=== PATIENT | female | born 1970 | race Caucasian/White ===

== ENCOUNTER 2017-01-16 00:15 | Emergency (ER) | payer OTHER ==
[2017-01-16] MEDS ORDERED: FAMOTIDINE 20 MG TABLET ONE (01:26)
[2017-01-16] MEDS ORDERED: DIPHENHYDRAMINE 25 MG CAPSULE PO ONE (01:26)
--- NOTE | 2017-01-16 01:26 | ER NURSING DOCUMENTATION ---
Nurse's Notes [facility] Name:Rochelle Marcial Age:46 yrs Sex:Female :1970 Arrival Date:01/16/2017 Time:00:15 Bed5 Private MD:Margarita Mcelroy Diagnosis:Insect Bite on Head;Allergic Reaction Presentation: 01/16 00:20 Presenting complaint: Patient states: Left eye pain and edema. States possible bug mk4 bite. Transition of care: Home. 00:20 Method Of Arrival: Walk In [facility] 00:20 Acuity: BAO 4 [facility] 00:25 Presenting complaint:. 4 Triage Assessment: 00:20 Bite description: bite sustained to left eye by a spider. General: Appears comfortable, 4 Behavior is cooperative. Pain: Complains of pain in left eye. EENT: No deficits noted. Neuro: No deficits noted. Cardiovascular: Chest pain is denied. Respiratory: Airway is patent Breath sounds are clear bilaterally. GI: No deficits noted. : No deficits noted. Derm: No deficits noted. 01:25 Bite description: bite by animal information: vaccination(s). [facility] Historical: - Allergies: PENICILLINS; - Home Meds: 1. None - Tetanus: < 10 years. - Ebola Screening: : No symptoms or risks identified at this time. . - Immunization history: Unable to Obtain. - Social history: Smoking status: Patient states was never smoker of tobacco. Screenin:20 Infectious Disease Risk None. Abuse screen: Denies threats or abuse. Nutritional [facility] screening: No deficits noted. Assessment: 00:20 See Triage Assessment done by same RN. [facility] 00:20 Derm: Skin is pink, warm & dry. 4 00:20 Derm: Skin is intact. [facility] Vital Signs: 00:23 BP 111 / 51 (auto/); mk4 00:23 Pulse Ox 98% ; mk4 00:23 Temp 98.7; Weight 52.16 kg; Height 5 ft. 3 in. (160.02 cm); Pain 2/10; mk4 00:23 Body Mass Index 20.37 (52.16 kg, 160.02 cm) [facility] ED Course: 00:16 Patient arrived in ED. em2 00:16 Margarita Mcelroy MD is Private Physician. em2 00:[address] Carter notified. Allergy Band Placed Arm band placed on Bed in mk4 low position Call Light in Reach. Family accompanied patient. 00:25 Marycruz Shukla is Primary Nurse. mk4 00:52 Joao Carter MD is Attending Physician. cd 01:06 Margarita Mcelroy MD is Referral Physician. cd 01:17 Triage completed. mk4 01:23 Valuables Remains with patient. mk4 Administered Medications: 01:14 Drug: Benadryl 50 mg; Route: PO; mk4 01:21 Follow up: Response: No adverse reaction mk4 01:14 Drug: Pepcid 20 mg; Route: PO; mk4 01:21 Follow up: Response: No adverse reaction 4 Outcome: 01:07 Discharge ordered by . cd 01:24 Discharged to home mk4 01:24 Condition: good 01:24 Discharge instructions given to patient, Instructed on discharge instructions, follow up and referral plans. medication usage, Demonstrated understanding of Prescriptions given X 1. 01:25 Patient left the ED. 4 Signatures: Jaoo Carter MD MD Shanell-reg, Roselyn-reg em2 Marycruz Shukla [facility]
--- NOTE | 2017-01-16 01:26 | ER PHYSICIAN DOCUMENTATION ---
Physician Documentation [facility] Name:Rochelle Marcial Age:46 yrs Sex:Female :1970 Arrival Date:01/16/2017 Time:00:15 Bed5 Private MD:Margarita Mcelroy ED, Chris Disposition: 01/16/17 01:07 Discharged to Home/Self Care. Impression: Insect Bite on Head, Allergic Reaction. - Condition is Good. - Discharge Instructions: ALLERGIC REACTION, Insect (Local). - Prescriptions for Pepcid 20 mg Oral Tablet - take 1 tablet by ORAL route every 12 hours for 5 days; 10 tablet. - Medical Reconciliation form form. - Follow up: Margarita Mcelroy MD; When: 4- 6 days; Reason: Recheck today's complaints, Continuance of care. - Problem is new. - Symptoms have improved. - Notes: Apply ice packs to left eye. Take Benadryl 25mg by mouth every 6 hours for 2 days. Take Pepcid 20mg by mouth every 12 hours for 5 days. HPI: 01/16 00:30 This 46 yrs old Female presents to ER via Walk In with complaints of Insect cd Bite - LEFT EYE. 00:30 The patient is experiencing upper lid swelling after probable insect bite, to the left cd eye. Onset: The symptom(s)/episode began/occurred acutely, today. Associated signs and symptoms: Pertinent negatives: chills, ear ache, fever, headache. Severity of symptoms: At their worst the symptoms were mild in the emergency department the symptoms are unchanged. Historical: - Allergies: PENICILLINS; - Home Meds: 1. None - Tetanus: < 10 years. - Ebola Screening: : No symptoms or risks identified at this time. . - Immunization history: Unable to Obtain. - Social history: Smoking status: Patient states was never smoker of tobacco. ROS: 00:30 Constitutional: Negative for fever, chills, rigors and weight loss. cd 00:30 ENT: Negative for injury, pain, epistaxis and discharge. cd 00:30 Eyes: Positive for itching, swelling, Negative for foreign body sensation, pain, redness. 00:30 All other systems are negative. Exam: 00:30 Visual Acuity: I have reviewed the nursing documentation. cd 00:30 Constitutional: The patient appears alert, awake. 00:30 Eyes: Periorbital structures: swelling, that is mild, on the left supraorbital ridge and left upper eyelid, Pupils: equal, round, and reactive to light and accomodation, Extraocular movements: intact throughout, Conjunctiva: normal, no acute changes. Vital Signs: 00:23 BP 111 / 51 (auto/); mk4 00:23 Pulse Ox 98% ; mk4 00:23 Temp 98.7; Weight 52.16 kg; Height 5 ft. 3 in. (160.02 cm); Pain 2/10; mk4 00:23 Body Mass Index 20.37 (52.16 kg, 160.02 cm) mk4 MDM: 00:52 Patient medically screened. cd 01:00 Data reviewed: vital signs, nurses notes, old medical records, and as a result, I will cd discharge patient, administer antihistamines, benadryl, Pepcid. Data interpreted: Pulse oximetry: on room air is 98 %. Interpretation: normal. Counseling: I had a detailed discussion with the patient and/or guardian regarding: the historical points, exam findings, and any diagnostic results supporting the discharge/admit diagnosis, the need for outpatient follow up, for a recheck, with the patient's primary care provider, to return to the emergency department if symptoms worsen or persist or if there are any questions or concerns that arise at home. 01/16 01:05 Order name: Ice Packs; Complete Time: 01:15 cd Dispensed Medications: 01:14 Drug: Benadryl 50 mg; Route: PO; mk4 01:21 Follow up: Response: No adverse reaction [facility] 01:14 Drug: Pepcid 20 mg; Route: PO; mk4 01:21 Follow up: Response: No adverse reaction [facility] Signatures: Joao Carter MD MD cd King, Melody [facility]
== END 2017-01-16 01:26 | disposition home or self-care (01) ==
LOC: ER 00:15
DX: S00.262A Insect bite (nonvenomous) of left eyelid and periocular area, initial encounter (principal); W57.XXXA Bitten or stung by nonvenomous insect and other nonvenomous arthropods, initial encounter
CPT/HCPCS: 99283; Q0163